=== PATIENT | male | born 1995 | race Caucasian/White ===

== ENCOUNTER 2017-02-18 02:38 | Emergency (ER) | payer SELFPAY ==
--- NOTE | 2017-02-18 04:10 | ED ---
Carlton Bojorquez Rebecca, scribed for Lico Gonzáles MD on 02/18/17 at 0303 . Substance Abuse/Use - HPI Summary HPI Summary: Pt is a 21 y/o M who presents to ED c/o SOB, lightheadedness and shaking s/p cocaine and EtOH use. Pt report snorting 1 gram of cocaine over 2 hours and drinking 3-4 beers tonight. Pt reports he began experiencing SOB which is typical with his use, which resolved, then returned along with the other sx. Sx have been intermittent since onset, aggravated and alleviated by nothing. Currently, he reports the sx have improved with the lightheadedness and shaking still present, but not as severely. Denies SI, HI. SHx prior cocaine use. - History Of Current Complaint Chief Complaint: EDSubstanceAbuse Stated Complaint: SUBSTANCE ABUSE//SHAKING Time Seen by Provider: 02/18/17 02:57 Hx Obtained From: Patient Ingestion History: Type/Name Of Drug - Cocaine and EtOH, Amount Ingested - 1 g of cocaine, 3-4 beers Overdose Characteristics: Oral - EtOH, Inhalation - cocaine Character: Other - Shaking, lightheaded and SOB Aggravating Factor(s): Nothing Alleviating Factor(s): Nothing - Allergies/Home Medications Allergies/Adverse Reactions: Allergies Allergy/AdvReac Type Severity Reaction Status Date / Time No Known Allergies Allergy Verified 10/02/12 20:15 PMH/Surg Hx/FS Hx/Imm Hx Endocrine/Hematology History: Denies: Hx Diabetes Cardiovascular History: Denies: Hx Coronary Artery Disease, Hx Hypertension - Surgical History Surgery Procedure, Year, and Place: APPENDECTOMY Infectious Disease History: Yes Infectious Disease History: Denies: Traveled Outside the [place] in Last 30 Days - Family History Known Family History: Positive: Other - seizure/"epileptic activity" - Social History Alcohol Use: Occasionally Substance Use Type: Reports: Cocaine Smoking Status (MU): Never Smoked Tobacco Review of Systems Positive: Other - Shaking Positive: Shortness Of Breath Neurological: Other - Lightheadedness Positive: Other - NEGATIVE: SI, HI All Other Systems Reviewed And Are Negative: Yes Physical Exam Triage Information Reviewed: Yes Vital Signs On Initial Exam: Initial Vitals Temp Pulse Resp BP Pulse Ox 97.6 F 15 20 182/79 99 02/18/17 02:41 02/18/17 02:41 02/18/17 02:41 02/18/17 02:41 02/18/17 02:41 Vital Signs Reviewed: Yes Appearance: Positive: Well-Appearing, No Pain Distress Skin: Positive: Warm Head/Face: Positive: Normal Head/Face Inspection Eyes: Positive: JENNIFER ENT: Positive: Hearing grossly normal Neck: Positive: Supple Respiratory/Lung Sounds: Positive: Clear to Auscultation, Breath Sounds Present Cardiovascular: Positive: RRR Abdomen Description: Positive: Nontender, No Organomegaly, Soft Bowel Sounds: Positive: Present Musculoskeletal: Positive: Strength/ROM Intact Neurological: Positive: Alert, Oriented to Person Place, Time Diagnostics - Vital Signs Vital Signs Temp Pulse Resp BP Pulse Ox 02/18/17 02:49 97.6 F 99 15 182/79 99 02/18/17 02:41 97.6 F 15 20 182/79 99 - Laboratory Lab Statement: Any lab studies that have been ordered have been reviewed, and results considered in the medical decision making process. - EKG 0311 Cardiac Rate: NL - 71 bpm EKG Rhythm: Sinus Rhythm EKG Interpretation: Normal Re-Evaluation - Re-Evaluation First Eval Re-Evaluation Time: 04:21 Change: Improved Comment: Discussed D/c plan with the pt. Course/Dx - Course Assessment/Plan: Pt is a 21 y/o M who presents to ED c/o SOB, lightheadedness and shaking s/p cocaine and EtOH use. Pt report snorting 1 gram of cocaine over 2 hours and drinking 3-4 beers tonight. Pt reports he began experiencing SOB which is typical with his use, which resolved, then returned along with the other sx. Sx have been intermittent since onset, aggravated and alleviated by nothing. Currently, he reports the sx have improved with the lightheadedness and shaking still present, but not as severely. Denies SI, HI. SHx prior cocaine use. EKG reveals sinus rhythm. He will be D/C to home with Dx of polysubstance abuse and a follow up with his PCP. He understands and agrees. Elevated BP noted and advised to f/u with PCP. - Diagnoses Provider Diagnoses: Polysubstance abuse Discharge - Discharge Plan Condition: Stable Disposition: HOME Patient Education Materials: Polysubstance Abuse (ED) Referrals: Willow Doherty MD [Primary Care Provider] - 3 Days Additional Instructions: Return to the ED for any returning or worsening symptoms. The documentation as recorded by the Carlton maguire Rebecca accurately reflects the service I personally performed and the decisions made by me, Lico Gonzáles MD.
[2017-02-18 04:40] VITALS: BP 133/65
== END 2017-02-18 04:39 | disposition home or self-care (01) ==
LOC: ED 02:38
DX: F19.10 Other psychoactive substance abuse, uncomplicated (principal); F14.10 Cocaine abuse, uncomplicated; R42 Dizziness and giddiness; R06.02 Shortness of breath; Z72.89 Other problems related to lifestyle
CPT/HCPCS: 93005; 99284

== ENCOUNTER 2017-03-16 | Emergency (ER) | payer BC ==
[2017-03-16 05:39] VITALS: BP 130/58
--- NOTE | 2017-03-16 08:01 | ED ---
Carlton Bojorquez Rebecca, scribed for Berhane Rojas MD on 03/16/17 at 0418 . Headache - HPI Summary HPI Summary: Pt is a 21 y/o M who presents to ED c/o ROBERT s/p head injury. 3 weeks ago, the pt hit his head on a wooden door frame and believes that he experienced momentary LOC but is unsure stating that he "maybe blacked out a little bit." For the last two weeks he has been experiencing increasingly worse, intermittent, occipital HAs. Upon arrival to [facility] ED, pain was moderate, ranked 5/10 and now it is mild, ranked 3/10, described as tightness. Sx aggravated by studying and decreased sleep, alleviated slightly by Aleve, last taken at about 2200. Additionally c/o altered vision, slight nausea and lightheadedness. Describes vision as "like everything looks different, but then when you focus on something really hard, it's not different." Denies vomiting, back pain, neck pain and LE weakness. No PMHx headaches. - History Of Current Complaint Chief Complaint: EDHeadInjury Stated Complaint: HEAD INJURY TWO WEEKS AGO Time Seen by Provider: 03/16/17 04:03 Hx Obtained From: Patient Onset/Duration: Started weeks ago - 2 weeks, Still Present Initially Headache Was: Initial Pain Scale(0-10)= - 5/10, Moderate Currently Pain Is: Current Pain Scale(0-10)= - 3/10, Mild Timing: Intermittent, Lasting: Location of Headache: Occipital Aggravating Factor: Other - Studying, lack of sleep Allevating Factors: Medication - Aleve Associated Signs And Symptoms: Nausea, Visual Changes, Other (Noted In Comments ) - Lightheadedness - Allergies/Home Medications Allergies/Adverse Reactions: Allergies Allergy/AdvReac Type Severity Reaction Status Date / Time No Known Allergies Allergy Verified 10/02/12 20:15 PMH/Surg Hx/FS Hx/Imm Hx Endocrine/Hematology History: Denies: Hx Diabetes Cardiovascular History: Denies: Hx Coronary Artery Disease, Hx Hypertension Neurological History: Denies: Hx Headaches - Surgical History Surgery Procedure, Year, and Place: APPENDECTOMY - Immunization History Immunizations Up to Date: Yes Infectious Disease History: No Infectious Disease History: Denies: Traveled Outside the [place] in Last 30 Days - Family History Known Family History: Positive: Other - seizure/"epileptic activity" - Social History Alcohol Use: Occasionally Substance Use Type: Reports: Cocaine Smoking Status (MU): Never Smoked Tobacco Review of Systems Positive: Other - Altered vision Positive: Nausea. Negative: Vomiting Positive: Other - NEGATIVE: Neck pain and back pain Neurological: Other - Lightheadedness Positive: Headache. Negative: Weakness All Other Systems Reviewed And Are Negative: Yes Physical Exam - Summary Physical Exam Summary: The patient is well-nourished in no acute distress and in no acute pain. The skin is warm and dry and skin color reflects adequate perfusion. HEENT: The head is normocephalic and atraumatic. The pupils are equal and reactive and not photophobic. There are no hoffman signs. The conjunctivae are clear and without drainage. Nares are patent and without drainage. Mouth reveals moist mucous membranes, a midline tongue and the throat is without erythema and exudate. The external ears are intact. The ear canals are patent and without drainage. The tympanic membranes are intact with no hemotympanum. There is no reproducible pain to palpation of the scalp. There are no stepoffs. Neck is supple with full range of motion and non-tender. Respiratory: Chest is non-tender. Lungs are clear to auscultation and breath sounds are symmetrical and equal. Cardiovascular: Hear is regular rate and rhythm. There is no murmur or rub auscultated. There is no peripheral edema and pulses are symmetrical and equal. Abdomen: The abdomen is soft and non-tender. There are normal bowel sounds heard in all four quadrants and there is no organomegaly palpated. Musculoskeletal: There is no back pain noted. Extremities are non-tender with full range of motion. There is good capillary refill. There is no peripheral edema or calf tenderness elicited. Neurological: Patient is alert and oriented to person, place and time. The patient has symmetrical motor strength in both the upper and lower extremities bilaterally. Psychiatric: The patient has an appropriate affect and does not exhibit any anxiety or depression. GCS: 15 Triage Information Reviewed: Yes Vital Signs On Initial Exam: Initial Vitals Temp Pulse Resp BP Pulse Ox 98.3 F 63 18 110/90 98 03/16/17 00:05 03/16/17 00:05 03/16/17 00:05 03/16/17 00:05 03/16/17 00:05 Vital Signs Reviewed: Yes - Ashwini Coma Scale Coma Scale Total: 15 Diagnostics - Vital Signs Vital Signs Temp Pulse Resp BP Pulse Ox 03/16/17 02:32 98.5 F 53 18 127/59 100 03/16/17 00:05 98.3 F 63 18 110/90 98 - Laboratory Lab Statement: Any lab studies that have been ordered have been reviewed, and results considered in the medical decision making process. - CT Brain CT CT Interpretation: No Acute Changes - No acute brain parenchymal abnormality. No hemorrhage, mass or acute territorial infarct. Clear visualized paranasal sinuses. Visualized masoid air cells clear. ED physician reviewed radiology report and agrees. CT Interpretation Completed By: Radiologist Re-Evaluation - Re-Evaluation First Eval Re-Evaluation Time: 05:33 Comment: Discussed CT results and D/C plan with the pt. Headache Course/Dx - Course Assessment/Plan: Pt is a 21 y/o M who presents to ED c/o ROBERT s/p head injury. 3 weeks ago, the pt hit his head on a wooden door frame and believes that he experienced momentary LOC but is unsure stating that he "maybe blacked out a little bit." For the last two weeks he has been experiencing increasingly worse , intermittent, occipital HAs. Upon arrival to [facility] ED, pain was moderate, ranked 5/10 and now it is mild, ranked 3/10, described as tightness. Sx aggravated by studying and decreased sleep, alleviated slightly by Aleve, last taken at about 2200. Additionally c/o altered vision, slight nausea and lightheadedness. Describes vision as "like everything looks different, but then when you focus on something really hard, it's not different." Denies vomiting, back pain, neck pain and LE weakness. No PMHx headaches. Brain CT reveals no acute findings. Pt will be D/C to home with Dx of concussion and a follow up with his PCP. He understands and agrees. - Diagnoses Differential Diagnosis/HQI/PQRI: Subdural Hematoma, Subarachnoid Hemorrhage, Other - concussion Provider Diagnoses: Concussion Discharge - Discharge Plan Condition: Stable Disposition: HOME Patient Education Materials: Concussion (ED) Referrals: Willow Doherty MD [Primary Care Provider] - 3 Days The documentation as recorded by the Carlton maguire Rebecca accurately reflects the service I personally performed and the decisions made by me, Berhane Rojas MD.
--- NOTE | 2017-03-16 08:17 | RAD ---
INDICATION: Intracranial injury COMPARISON: None TECHNIQUE: Noncontrast axial source images were acquired from the skull base to the vertex. FINDINGS: Ventricles/sulci: The ventricles and cisterns are normal in size and configuration for age. Brain parenchyma: There is no focal parenchymal finding, evidence of intracranial mass, or intracranial mass effect. Intracranial hemorrhage:None. Extra-axial spaces: There are no abnormal extra axial fluid collections or evidence of extra-axial mass. Calvarium: There is no calvarial fracture or other calvarial abnormality. Scalp: There is no evidence of scalp or extracalvarial soft tissue abnormality. Paranasal sinuses/mastoid: The paranasal sinuses and mastoid air cells are clear. Other: None. IMPRESSION: NEGATIVE EXAMINATION
== END 2017-03-16 05:37 | disposition home or self-care (01) ==
LOC: ED
DX: S06.0X1A Concussion with loss of consciousness of 30 minutes or less, initial encounter (principal); R11.0 Nausea; R51 Headache; W22.8XXA Striking against or struck by other objects, initial encounter; Y93.9 Activity, unspecified; Y92.9 Unspecified place or not applicable
CPT/HCPCS: 70450; 99282

== ENCOUNTER 2017-05-31 19:52 | Emergency (ER) | payer BC ==
[2017-05-31 20:46] LABS: Hematocrit 42 % (42-52); Hemoglobin 14.3 g/dl (14.0-18.0); Mean Corpuscular HGB Conc 34 g/dl (31-36); Mean Corpuscular Hemoglobin 30 pg (27-31); Mean Corpuscular Volume 88 fL (80-94); Mean Platelet Volume 8 um3 (7.4-10.4); Red Blood Count 4.78 10^6/ul (4.0-5.4); Red Cell Distribution Width 13 % (10.5-15); White Blood Count 19.2 10^3/ul (3.5-10.8)
[2017-05-31 21:01] LABS: Albumin 4.8 g/dL (3.2-5.2); BUN/Creatinine Ratio 18.3 (8-20); EGFR African American 110.9 (>60); EGFR Non-African American 86.2 (>60); Potassium 4.1 mmol/L (3.5-5.0); Total Bilirubin 0.4 mg/dL (0.2-1.0); Total Protein 7.8 g/dL (6.4-8.9)
[2017-05-31] MEDS ORDERED: NS 0.9% 1000 ML* 1,000 ML IV ONE (23:50)
[2017-06-01 07:18] VITALS: BP 103/48
--- NOTE | 2017-06-01 08:28 | RAD ---
HISTORY: Right hand pain, trauma COMPARISONS: None VIEWS: 2, Frontal and lateral views of the right hand FINDINGS: BONE DENSITY: Normal. BONES: On the lateral view, there is a questionable nondisplaced fracture of the base of the third metacarpal dorsally. JOINTS: There is no arthropathy. ALIGNMENT: There is no dislocation. SOFT TISSUES: Unremarkable. OTHER FINDINGS: None. IMPRESSION: QUESTIONABLE NONDISPLACED FRACTURE OF THE DORSAL ASPECT OF THE BASE OF THE THIRD METACARPAL. RECOMMEND CORRELATION WITH SITE OF PAIN.
--- NOTE | 2017-06-01 08:29 | RAD ---
HISTORY: Elbow pain COMPARISONS: None VIEWS: 2, Frontal and lateral views of the right elbow FINDINGS: BONE DENSITY: Normal. BONES: There is no displaced fracture. JOINTS: There is no arthropathy. There is a small joint effusion. ALIGNMENT: There is no dislocation. SOFT TISSUES: Unremarkable. OTHER FINDINGS: None. IMPRESSION: NO ACUTE OSSEOUS INJURY. SMALL JOINT EFFUSION WHICH MAY INDICATE THE PRESENCE OF AN OCCULT FRACTURE IN THE SETTING OF TRAUMA. IF SYMPTOMS PERSIST, RECOMMEND REPEAT IMAGING.
--- NOTE | 2017-06-07 17:10 | ED ---
Ludmila Bojorquez Alfonso, scribed for Chidi Benítez MD on 06/01/17 at 0239 . Progress - Progress Note Progress Note: This patient was signed out from Dr. Garcia, pending disposition, awaiting MHE. The patients condition is stable and he will be signed out to the next provider at shift change. Course/Dx - Diagnoses Provider Diagnoses: Depression, Alcohol intoxication The documentation as recorded by the [email or web address] noyola Alfonso accurately reflects the service I personally performed and the decisions made by Jeyson martin Dong, MD.
== END 2017-06-01 09:30 ==
LOC: ED 19:52
DX: F10.129 Alcohol abuse with intoxication, unspecified (principal); F32.9 Major depressive disorder, single episode, unspecified
CPT/HCPCS: 36415; 80053; 80320; 85025; 99282; G0480

== ENCOUNTER 2018-05-12 09:19 | Emergency (ER) | payer BC ==
[2018-05-12] MEDS: NS 0.9% 1000 ML* 2,000 ML IV ONE ×2 (09:54→10:46)
--- NOTE | 2018-05-12 09:56 | ED ---
HPI Chest Pain - HPI Summary HPI Summary: Pt is a 22 y/o M brought in by EMS due to chest pain since 0600 this morning. The ambulance came to his residence twice; the first time he decided to sleep it off, and declined transport, but pt continued to feel worse so he called ambulance again 30 minutes later. When pt arrives to ED pain is gone, and now he feels more of a tightness in the middle of his chest. Last night he drank alcohol around midnight, used approximately 1 g of cocaine between 00:00 and 04: 00 this morning, and smoked marijuana which he states exacerbated his condition. Pt has used cocaine before and has not felt this sensation before. Notes SOB, fatigue, nausea now resolved, sore throat, uncontrollable shaking now resolved, and right sided abdominal pain. Denies fever, headache, or dizziness. Also attended a musical festival a few days prior where pt also took cocaine and MDMA. Pt denies SI/HI and states he does not want rehab for substance abuse. Home Medications Medication Instructions Recorded Confirmed Type Amphetamine MIXED SALT TAB* 10 mg PO DAILY 10/02/12 10/02/12 History [Adderall TAB*] Naproxen Sodium [Aleve] 2 tab PO PRN 10/02/12 10/02/12 History - History of Current Complaint Chief Complaint: EDSubstanceAbuse Time Seen by Provider: 05/12/18 09:34 Hx Obtained From: Patient, EMS Onset/Duration: Started Hours Ago, Resolved Time of Onset: 06:00 Timing: Lasting Hours Initial Severity: Moderate Current Severity: None Pain Intensity: 0 Pain Scale Used: 0-10 Numeric Chest Pain Location: Mid Sternal Chest Pain Radiates: No Character: Tightness Aggravating Factor(s): Alcohol, Other: - smoking marijuana, snorting cocaine Alleviating Factor(s): Nothing Associated Signs and Symptoms: Positive: Chest Pain, Shortness of Breath, Nausea , Abdominal Pain. Negative: Headaches, Dizziness, Fever - Allergy/Home Medications Allergies/Adverse Reactions: Allergies Allergy/AdvReac Type Severity Reaction Status Date / Time morphine AdvReac See Comment Verified 05/19/18 12:38 PMH/Surg Hx/FS Hx/Imm Hx Previously Healthy: No - ongoing cocaine, alcohol and marijuana abuse Endocrine/Hematology History: Denies: Hx Diabetes Cardiovascular History: Denies: Hx Coronary Artery Disease, Hx Hypertension Neurological History: Denies: Hx Headaches Psychiatric History: Reports: Hx of Violent Episodes Against Others, Hx Substance Abuse Denies: Hx Eating Disorder - Surgical History Surgery Procedure, Year, and Place: APPENDECTOMY Infectious Disease History: No Infectious Disease History: Denies: Traveled Outside the [place] in Last 30 Days - Family History Known Family History: Positive: Other - seizure/"epileptic activity" Negative: Cardiac Disease - Social History Occupation: Employed Full-time - has his own business Alcohol Use: Weekly Substance Use Type: Reports: Cocaine, Marijuana Substance Use Comment - Amount & Last Used: Hx Smoking Status (MU): Never Smoked Tobacco Review of Systems Positive: Fatigue. Negative: Fever Positive: Sore Throat Positive: Chest Pain - now resolved Positive: Shortness Of Breath Positive: Abdominal Pain - right sided, Nausea - resolved Positive: no symptoms reported Musculoskeletal: Negative Skin: Negative Neurological: Other - Uncontrollable shaking resolved, NEGATIVE: dizziness Psychological: Other - does not appear intoxicated, calm, cooperative All Other Systems Reviewed And Are Negative: Yes Physical Exam - Summary Physical Exam Summary: Appearance: Well-appearing, no pain distress, well-nourished Skin: Warm, color reflects adequate perfusion, dry Head: Normal Head/Face inspection, atraumatic Eyes: Conjunctiva clear, Pupils 3mm reactive to light, equal, round, no nystagmus, EOMI ENT: Normal inspection, no blood in nares, no nasal septal abnormality, TM's clear, Pharynxy clear (Pt declines strep/flu swab despite sore throat) Neck: Supple, no nodes, no JVD Respiratory: Lungs clear, normal breath sounds, no respiratory distress Cardio: RRR, No murmur, pulses normal, brisk capillary refill Abdomen: Soft, nontender, no guarding, no rebound, no pain in RLQ on palpation where pt stated he had pain. Bowel sounds: Present Musculoskeletal: Strength Intact/ROM intact, no calf tenderness, no edema. Psychological: Normal Neuro: Alert, muscle tone normal, no focal deficit Triage Information Reviewed: Yes Vital Signs On Initial Exam: Initial Vitals Temp Pulse Resp BP Pulse Ox 99.0 F 75 12 128/68 99 05/12/18 09:20 05/12/18 09:20 05/12/18 09:20 05/12/18 09:20 05/12/18 09:20 Vital Signs Reviewed: Yes Diagnostics - Vital Signs Vital Signs Temp Pulse Resp BP Pulse Ox 05/12/18 09:26 71 7 98 05/12/18 09:20 99.0 F 75 12 128/68 99 - Laboratory Result Diagrams: 05/12/18 09:41 05/12/18 09:41 Lab Statement: Any lab studies that have been ordered have been reviewed, and results considered in the medical decision making process. - Radiology CXR Radiology Interpretation Completed By: Radiologist - Impression: No evidence for acute intrathoracic disease. ED Physician reviewed this report. - EKG 929 Cardiac Rate: NL - 77 bpm EKG Rhythm: Sinus Rhythm ST Segment: Non-Specific Ectopy: None EKG Comparison: No Significant Change - 02/18/17 EKG Summary of EKG Findings: An EKG at 30 reveals nml AV/IV CT, nml QTc, and nml axis Re-Evaluation - Re-Evaluation First Eval Re-Evaluation Time: 13:15 Change: Improved Comment: BP 114/58 P 69. Pt is pain free. Speech is clear. No sign of intoxication. Denies suicidal and homicidal ideation. Advised to DC substance abuse. Chest Pain Course/Dx - Course Course Of Treatment: Pt is a 22 y/o M brought in by EMS due to chest pain since 0600 this morning. When pt arrives to ED pain is gone, and now he feels more of a tightness in the middle of his chest. Last night he drank alcohol around midnight, used approximately 1 g of cocaine between 00:00 and 04:00 this morning , and smoked marijuana which he states exacerbated his condition. Pt has used cocaine before and has not felt this sensation before. Notes SOB, fatigue, nausea now resolved, sore throat, uncontrollable shaking now resolved, and right sided abdominal pain. Denies fever, headache, or dizziness. Physical exam was normal. CXR showed no evidence for acute intrathoracic disease. EKG taken at 09:30 shows sinus rhythm at 77 bpm with nml AV/IV CT, nml QTc, and nml axis. Pt had troponin x 2, both zero, and pt was pain free in the ED. Pt's CK was elevated, indicating mild rhabodmyolysis, presumably due to cocaine abuse. Pt's muscles are not pain, no sign of compartment syndrome, and pt is able to ambulate. Pt was hydrated with NS while in the ED, so CK should have decreased. Pt is encouraged to continue hydration. Tox screen is positive, as pt reported. Serum alcohol was 105 on admission, although pt did not appear intoxicated. Alcohol metabolism should have brought his alcohol level to a safe level for sobriety, and pt showed no sign of withdrawal or seizure in the ED. During re eval at 13:15 pt is pain free and advised to discontinue substance abuse. Pt diagnosed with cocaine abuse, alcohol intoxication, marijuana abuse, and chest pain. Pt is discharged home and is agreeable with this plan. Pt is given resources for seeking assistance with drug and alcohol abuse. He maintains he is not suicidal or homicidal and never was with this encounter. - Chest Pain Differential Diagnosis/HQI/PQRI: Acute RI, ACS, Chest Wall, GI Disease, Lower Respiratory Infection - Diagnoses Provider Diagnoses: Cocaine abuse, Alcohol intoxication, Marijuana abuse, Chest pain, Elevated CK Discharge - Sign-Out/Discharge Documenting (check all that apply): Patient Departure - Discharge - Discharge Plan Condition: Stable Disposition: HOME Patient Education Materials: Cocaine Abuse (ED), Alcohol Intoxication (ED) Referrals: Willow Doherty MD [Primary Care Provider] - 2 Days Additional Instructions: Your tests did not show any sign of heart damage from your use of cocaine, alcohol and marijuana. You should refrain from using these substances altogether. We have given you some information for where to seek help to stop using these substances. You may contact [facility] [place] at [phone] or [employer] at [phone]. Return to the ER if you have any new or worsening symptoms. - Billing Disposition and Condition Condition: STABLE Disposition: Home - Attestation Statements Document Initiated by Khariibe: Yes Documenting Scribe: Moni Abreu Provider For Whom Katey is Documenting (Include Credential): Dr. Kanchan Stratton MD Scribe Attestation: Moni Bojorquez scribed for Dr. Kanchan Stratton MD on 05/20/18 at 1304. Scribe Documentation Reviewed: Yes Provider Attestation: The documentation as recorded by the larryeMoni accurately reflects the service I personally performed and the decisions made by me, Dr. Kanchan Stratton MD
[2018-05-12] MEDS ORDERED: Aspirin 81 mg CHEW TAB* 81 MG TAB.CHEW PO ONE (10:00)
[2018-05-12 10:01] LABS: ABS Basophils 0 10^3/ul (0-0.2); ABS Eosinophils 0 10^3/ul (0-0.6); ABS Lymphocytes 1.7 10^3/ul (1.0-4.8); ABS Monocytes 0.4 10^3/ul (0-0.8); ABS Neutrophils 7.7 10^3/ul (1.5-7.7); ABS Nucleated RBC 0 10^3/ul; Eosinophil % 0.1 % (0-6); Hematocrit 44 % (42-52); Hemoglobin 15.7 g/dl (14.0-18.0); Lymphocyte % 17.1 % (25-47); Mean Corpuscular HGB Conc 36 g/dl (31-36); Mean Corpuscular Hemoglobin 31 pg (27-31); Mean Corpuscular Volume 88 fL (80-94); Mean Platelet Volume 7.8 fL (7.4-10.4); Nucleated Red Blood Cells % 0.1; Platelet Count 307 10^3/ul (150-450); Red Blood Count 5.01 10^6/ul (4.00-5.40); Red Cell Distribution Width 12 % (10.5-15); White Blood Count 9.8 10^3/ul (3.5-10.8)
[2018-05-12 10:08] LABS: INR 1.04 (0.77-1.02)
[2018-05-12 10:08] LABS: Urine Appearance Clear; Urine Blood Negative (Negative); Urine Color Colorless; Urine Ketones Negative (Negative); Urine Protein Negative (Negative); Urine Specific Gravity 1.001 (1.010-1.030); Urine Urobilinogen Negative (Negative)
[2018-05-12 10:13] LABS: EGFR Non-African American 86.3 (>60)
[2018-05-12 13:30] VITALS: BP 99/58
== END 2018-05-12 13:30 | disposition home or self-care (01) ==
LOC: ED 09:19
DX: R07.9 Chest pain, unspecified (principal); F14.10 Cocaine abuse, uncomplicated; F10.129 Alcohol abuse with intoxication, unspecified; F12.10 Cannabis abuse, uncomplicated
CPT/HCPCS: 36415; 71045; 80053; 80307; 80320; 80329; 81003; 82550; 82553; 83605; 83880; 84443; 84484; 85025; 85379; 85610; 85730; 93005; 96360; 96361; 99284; G0480

== ENCOUNTER 2018-05-19 12:24 | Emergency (ER) | payer BC ==
--- NOTE | 2018-05-19 12:31 | UC ---
Throat Pain/Nasal Jerel HPI - HPI Summary HPI Summary: 22 yo male presents with sinus congestion and sore throat for the last week. He has been taking robitussin with no relief. Has felt feverish at times, but has not taken his temperature. He also mentions that yesterday he was snowboarding and fell onto his left shoulder. He thinks it dislocated, but - out of reaction - he pulled on it and thinks it went back into place. Left shoulder is painful today. Denies fever, chills, cough, SOB, chest pain, numbness, or tingling. - History of Current Complaint Stated Complaint: SORE THROAT Time Seen by Provider: 05/19/18 12:31 Hx Obtained From: Patient Pain Intensity: 1 Pain Scale Used: 0-10 Numeric - Allergies/Home Medications Allergies/Adverse Reactions: Allergies Allergy/AdvReac Type Severity Reaction Status Date / Time morphine AdvReac See Comment Verified 05/19/18 12:38 Home Medications: Home Medications Aspirin/Sod Bicarb/Citric Acid [Marsha-Tatum Es Tab Eff] 1 each PO ONCE PRN [History Confirmed 05/19/18] Dextromethorphan HBr [Tussin Cough] 15 mg PO ONCE PRN 05/19/18 [History Confirmed 05/19/18] PMH/Surg Hx/FS Hx/Imm Hx - Additional Past Medical History Additional PMH: None - Surgical History Surgical History: Yes Surgery Procedure, Year, and Place: APPENDECTOMY - Family History Known Family History: Positive: Other - seizure/"epileptic activity" Negative: Cardiac Disease - Social History Occupation: Student Lives: With Family Alcohol Use: Weekly Substance Use Type: Cocaine, Marijuana Smoking Status (MU): Never Smoked Tobacco Review of Systems All Other Systems Reviewed And Are Negative: Yes Constitutional: Positive: Negative Skin: Positive: Negative Eyes: Positive: Negative ENT: Positive: Sore Throat, Sinus Congestion Respiratory: Positive: Negative Cardiovascular: Positive: Negative Gastrointestinal: Positive: Negative Neurovascular: Positive: Negative Musculoskeletal: Positive: Other: - Left shoulder pain Neurological: Positive: Negative Psychological: Positive: Negative Physical Exam - Summary Physical Exam Summary: GENERAL: NAD. WDWN. No pain distress. SKIN: No rashes, sores, lesions, or open wounds. HEENT: Head: AT/NC Eyes: Conjunctiva clear without inflammation or discharge. Ears: Hearing grossly normal. TMs intact, no bulging, erythema, or edema. Nose: Nasal mucosa pink and moist. NTTP maxillary and frontal sinus. Throat: Posterior oropharynx mild erythema. No exudates. Uvula midline. No hoarse voice or muffled voice. NECK: Supple. Mild TTP tonsillar LAD CHEST: CTAB. No r/r/w. No accessory muscle use. Breathing comfortably and in no distress. CV: RRR. Without m/r/g. Pulses intact. Cap refill <2seconds MSK: LEFT SHOULDER: Mild TTP over AC joint. FROM, but pain >90deg. Strength 4/5 compared to right. Positive empty can, sanchez, and apprehension. No edema or obvious bony deformities. NEURO: Alert. Sensations intact C4-T1 b/l UEs PSYCH: Age appropriate behavior. Triage Information Reviewed: Yes Vital Signs: Vital Signs: Temp Pulse Resp BP Pulse Ox 98.2 F 61 16 149/72 100 05/19/18 12:33 05/19/18 12:33 05/19/18 12:33 05/19/18 12:33 05/19/18 12:33 Laboratory Tests 05/19/18 12:44 Group A Strep Rapid Negative Vital Signs Reviewed: Yes Throat Pain/Nasal Course/Dx - Course Course Of Treatment: POC strep negative. Left shoulder XR: IMPRESSION: There is evidence of an os acromiale. There is widening of the AC joint. This. may represent AC joint separation. No dislocation of the humerus is noted. Given recent injury, I suspect this is an acute AC separation. Discussed this finding with pt and offered a sling, but pt has good ROM to 90deg with minimal pain and would like to keep using his arm. I will refer him to Orthopedics for further evaluation. - Differential Dx/Diagnosis Provider Diagnoses: Pharyngitis. Left AC separation Discharge - Sign-Out/Discharge Documenting (check all that apply): Patient Departure All imaging exams completed and their final reports reviewed: Yes - Discharge Plan Condition: Stable Disposition: HOME Prescriptions: Amoxicillin PO (*) [Amoxicillin 500 MG CAP*] 500 mg PO Q12H #14 cap Patient Education Materials: Acromioclavicular Separation (ED), Pharyngitis (ED ) Referrals: Willow Doherty MD [Primary Care Provider] - Marc Hermosillo MD [Medical Doctor] - As Soon As Possible Additional Instructions: If you develop a fever, shortness of breath, chest pain, new or worsening symptoms - please call your PCP or go to the ED. Your blood pressure was high at todays visit. Please see your primary provider within 4 weeks for recheck and re-evaluation. 1) Rest and ice your shoulder 2) Please call Orthopedics at the number below to schedule a follow up appointment as soon as possible for further evaluation - Billing Disposition and Condition Condition: STABLE Disposition: Home
[2018-05-19 12:38] VITALS: BP 149/72
== END 2018-05-19 13:41 | disposition home or self-care (01) ==
LOC: UCEAST 12:24
DX: J02.9 Acute pharyngitis, unspecified (principal); S43.102A Unspecified dislocation of left acromioclavicular joint, initial encounter; V00.311A Fall from snowboard, initial encounter; Y93.23 Activity, snow (alpine) (downhill) skiing, snowboarding, sledding, tobogganing and snow tubing; Y92.9 Unspecified place or not applicable; Z88.5 Allergy status to narcotic agent
CPT/HCPCS: 87651; 99212; G0463